=== PATIENT | female | born 1980 | race Hispanic/Latino ===

== ENCOUNTER 2025-04-10 14:47 | Inpatient (IN) | payer BC, MEDICAID ==
[~2025-04-10] VITALS: Ht 141 cm; Wt 74.6 kg
--- NOTE | 2025-04-10 15:16 | EKG ---
[facility] Test Date: 2025-04-10 Test Time: 15:10:53 Pat Name: LEA ALEJANDRO Department: [facility] Room: 412 Gender: F [employer] Officer: [id number] : 1980 Requested By: RICKIE MCNEAL Order Number: [id number] Reading MD: Dercek Mckeon Measurements Intervals Willis Rate: 54 P: 7 SC: 172 QRS: -6 QRSD: 97 T: 19 QT: 410 QTc: 390 Interpretive Statements Sinus rhythm No previous ECG available for comparison RSR' IN V1 OR V2, PROBABLY NORMAL VARIANT Electronically Signed On 04-13-2025 10:31:31 CDT by Dereck Mckeon Please click the below link to view image of tracing.
--- NOTE | 2025-04-10 15:28 | HMCIMG ---
EXAM: CT Head Without IV contrast. CLINICAL HISTORY: seizure code stroke pt TECHNIQUE: Axial computed tomography images of the head/brain without intravenous contrast. COMPARISON: None provided. FINDINGS: BRAIN: No evidence of acute hemorrhage. No mass lesion. Small area of abnormal hypoattenuating right temporal lobe. No midline shift or extra-axial collections. Left temporal lobe chronic changes of encephalomalacia VENTRICLES: No hydrocephalus. Right ventricular shunt catheter tip in place. ORBITS: The orbits are unremarkable. SINUSES AND MASTOIDS: The paranasal sinuses and mastoid air cells are clear. BONES: No fracture. Left craniotomy changes. SOFT TISSUES: Unremarkable. IMPRESSION: 1. No acute intracranial hemorrhage or mass. 2. Small area of hypoattenuation in the right temporal lobe, possibly representing acute ischemia. Recommend MRI brain for further evaluation. 3. Left temporal lobe encephalomalacia, likely chronic. 4. Right ventricular shunt catheter in place. 5. Left craniotomy changes. /[place]
--- NOTE | 2025-04-10 15:45 | ERN ---
General Chief Complaint: Altered Mental Status Stated Complaint: MOUTH DEVIATION Time Seen by MD: 14:58 Source: patient, family History of Present Illness Initial Comments Patient is a 44-year-old female brought in by mother due to patient experiencing moments of unable to speak. Per mother patient has been presenting with these symptoms since 1:00 a.m.. Upon evaluation in triage her symptoms has been given to improve. Patient has a history of hydrocephaly with shunt in place as well as seizure with the multiple medications for seizure control. Allergies: Coded Allergies: No Known Drug Allergies (Unverified Allergy, Unknown, 04/10/25) Past Medical History Past Medical History: Seizure Past Surgical History: None ROS Dictation CONSTITUTIONAL: No chills, no fever, no weakness, no diaphoresis, no malaise. HEAD/FACE: No signs of trauma. EENT: No eye pain, no blurred vision, no tearing, no double vision, no ear pain, no ear discharge, no nose pain, no nasal congestion, no throat pain, no throat swelling, no mouth pain. RESPIRATORY: No cough, no orthopnea, no SOB, no stridor, no wheezing. CARDIOVASCULAR: No chest pain, no edema, no palpitations, no syncope. GASTROINTESTINAL/ABDOMINAL: No abdominal pain, no constipation, no diarrhea, no nausea, no vomiting. GENITOURINARY: No abnormal discharge, no dysuria, no frequent urination, no hematuria. No complaints of pain in the genitals. MUSCULOSKELETAL: No back pain, no gout, no joint pain, no joint swelling, no muscle pain, no muscle stiffness, no neck pain. INTEGUMENTARY: No change in color, no change in hair/nails, no dryness, no lesion, no lumps, no rash. NEUROLOGICAL/PSYCH: No anxiety, not depressed, no emotional problem, no headache, no numbness, no pre-existing deficit, no history of seizures, no tremors, no weakness. HEMATOLOGIC/LYMPHATIC: Not anemic, no history of blood clots, no apparent bleeding, no bruising, glands not swollen. All Systems Negative, Except as Noted. Physical Exam Physical Exam Dictation VITAL SIGNS: Reviewed. GENERAL APPEARANCE: Alert, oriented x3, no acute distress, obese. HEAD AND FACE: Non-traumatic. EYES: PERRL, pink conjunctivas, eyelid no trauma, anterior chamber clear. EARS: Pinnas intact and no signs of trauma or erythema. Ear canals clear and no discharge. TMs no erythema. NOSE: No discharge, no bleeding. OROPHARYNX: Mouth normal, teeth no caries, tongue pink. Pharynx clear, no erythema. Tonsils no exudates, no abscesses noted. Mucous membrane moist. NECK: Supple, non-tender, no thyromegaly, no masses, no JVD, no bruits. BREAST: Deferred. CHEST: No tenderness, no crepitus, no paradoxical movement, no retractions. LUNGS: Clear, well-ventilated, symmetric, no rales, no wheezing, no rhonchi, no stridor, good breath sounds bilaterally. HEART: Regular rate, regular rhythm, no murmur, no gallops. VASCULAR: No peripheral edema. ABDOMEN: Soft, positive bowel sounds, nondistended, no guarding, nontender, no rebound, no masses no hepatomegaly, no splenomegaly, no Marinelli's sign, no hernia s. RECTAL: Deferred. GENITAL: Deferred. NEUROLOGICAL: Normal speech, gross motor function intact, gross sensory function intact. MUSCULOSKELETAL: Neck nontender, full range of motion, back nontender, full range of motion. EXTREMITIES: Nontender, full range of motion. SKIN: Color pink, dry, no turgor, no rash, no lacerations, no abrasions, no contusions. LYMPHATICS: Deferred. Results Laboratory and Microbiology Lab and Micro Result Laboratory Tests Test 04/10/25 15:02 04/10/25 15:21 04/10/25 16:15 Whole Blood Glucose 80 MG/DL (70-110) White Blood Count 6.7 K/uL (4.8-10.8) Red Blood Count 4.20 MIL/uL (4.00-5.50) Hemoglobin 11.3 g/dL (12.0-16.0) L Hematocrit 36.2 % (36-48) Mean Corpuscular Volume 86.2 fL (79-99) Mean Corpuscular Hemoglobin 26.9 pg (27.0-33.0) L Mean Corpuscular Hemoglobin Concent 31.2 g/dL (32.0-36.0) L Red Cell Distribution Width 14.8 % (11.0-15.5) Platelet Count 305 K/uL (130-400) Mean Platelet Volume 10.6 fL (7.5-10.5) H Immature Granulocyte % (Auto) 0.3 % (0-1) Neutrophils (%) (Auto) 56.9 % (40.0-77.0) Lymphocytes (%) (Auto) 34.1 % (21.0-51.0) Monocytes (%) (Auto) 7.1 % (3.0-13.0) Eosinophils (%) (Auto) 1.1 % (0.0-8.0) Basophils (%) (Auto) 0.5 % (0.0-5.0) Neutrophils # (Auto) 3.8 K/uL (1.8-7.7) Lymphocytes # (Auto) 2.3 K/uL (1.0-4.8) Monocytes # (Auto) 0.5 K/uL (0.1-1.0) Eosinophils # (Auto) 0.07 K/uL (0.00-0.70) Basophils # (Auto) 0.03 K/uL (0.00-0.20) Absolute Immature Granulocyte (auto 0.02 K/uL (0-1) Nucleated Red Blood Cells 0.0 % (0.0-0.19) Prothrombin Time 10.4 SEC (9.6-11.6) Prothromb Time International Ratio 0.98 (0.85-1.15) Activated Partial Thromboplast Time 33.1 SEC (26.3-35.5) Sodium Level 135 mmol/L (136-145) L Potassium Level 3.8 mmol/L (3.5-5.1) Chloride Level 103 mmol/L (101-111) Carbon Dioxide Level 26 mmol/L (21-32) Blood Urea Nitrogen 14 mg/dL (7-18) Creatinine 0.8 mg/dL (0.5-1.0) Glomerular Filtration Rate Calc 93 mL/min (>90) Random Glucose 83 mg/dL (70-105) Total Calcium 8.7 mg/dL (8.5-10.1) Total Creatine Kinase 47 U/L (21-232) Troponin I High Sensitivity < 4 ng/L (4-50) L LDL Cholesterol 125 mg/dL (0-99) H Urine Color COLORLESS (YELLOW) Urine Appearance CLEAR (CLEAR) Urine pH 5.5 (5.0-8.0) Urine Specific [place] 1.004 (1.001-1.031) Urine Protein NEGATIVE mg/dL (NEGATIVE) Urine Glucose (UA) NEGATIVE mg/dL (NEGATIVE) Urine Ketones NEGATIVE mg/dL (NEGATIVE) Urine Occult Blood NEGATIVE (NEGATIVE) Urine Nitrate NEGATIVE (NEGATIVE) Urine Bilirubin NEGATIVE mg/dL (NEGATIVE) Urine Urobilinogen 0.2 mg/dL (0.2-1.0) Urine Leukocyte Esterase NEGATIVE Pedro/uL Urine Opiates Screen NEGATIVE (NEGATIVE) Urine Barbiturates Screen NEGATIVE (NEGATIVE) Urine Phencyclidine Screen NEGATIVE (NEGATIVE) Urine Amphetamines Screen NEGATIVE (NEGATIVE) Urine Benzodiazepines Screen NEGATIVE (NEGATIVE) Urine Cocaine Screen NEGATIVE (NEGATIVE) Urine Marijuana (THC) Screen NEGATIVE (NEGATIVE) Labs Reviewed?: Yes EKG/XRAY/US/CT/MRI EKG Comment 04/10/2025 time 3:10 p.m. Ventricular rate 54 Sinus rhythm NE [address] wave elevation or depression CT Scan Comment [address] [address] IMAGING REPORT Signed PATIENT: LEA ALEJANDRO MR#: [id number] : 1980 SEX: F AGE: 44 LOCATION: [facility] ORDER [id number] STATUS: [facility] REPORT#: [id number] SERVICE 1500 REASON: seizure ORDERING PHYSICIAN: RICKIE MCNEAL MD PROCEDURE: HEAD WO - CT HEAD/BRAIN W/O CONTRAST EXAM: CT Head Without IV contrast. CLINICAL HISTORY: seizure code stroke pt TECHNIQUE: Axial computed tomography images of the head/brain without intravenous contrast. COMPARISON: None provided. FINDINGS: BRAIN: No evidence of acute hemorrhage. No mass lesion. Small area of abnormal hypoattenuating right temporal lobe. No midline shift or extra-axial collections. Left temporal lobe chronic changes of encephalomalacia VENTRICLES: No hydrocephalus. Right ventricular shunt catheter tip in place. ORBITS: The orbits are unremarkable. SINUSES AND MASTOIDS: The paranasal sinuses and mastoid air cells are clear. BONES: No fracture. Left craniotomy changes. SOFT TISSUES: Unremarkable. IMPRESSION: 1. No acute intracranial hemorrhage or mass. 2. Small area of hypoattenuation in the right temporal lobe, possibly representing acute ischemia. Recommend MRI brain for further evaluation. 3. Left temporal lobe encephalomalacia, likely chronic. 4. Right ventricular shunt catheter in place. 5. Left craniotomy changes. /[place] DICTATED BY: DAVE BAUMANN MD DATE: 04/10/251626 ELECTRONICALLY SIGNED BY: DAVE BAUMANN MD DATE: 04/10/251626 MDM MDM: Differential diagnosis: Seizure-like activity, CVA, TIA, Rationale: Tests considered and ordered secondary to shared decision making include: labs, ECG and radiology Previous outside records reviewed: Old ER visits. Risk of complication and/or morbidity or mortality of patient management: None Medications-Per medication reconciliation Need for hospitalization: Patient does meet criteria for hospitalization. Need for emergency major/minor surgery: No There are no social concerns with this patient. Prescription drug management Prescriptions will include symptomatic care Patient's prior external medical records from other ER visits were reviewed by me as indicated. Prior testing and results from previous visits were reviewed. Prior tests were taken into account with medical decision making and resource utilization, independent historian/historians were used to obtain complete medical history. I independently interpreted the test that were performed, results were reviewed by me and considered findings on radiology if ordered. Medical management and examination interpretation discussions were had by me with other qualified healthcare professionals as indicated for the patient's care. Spoke to neurologist and per his recommendation patient is to get an MRI of the brain in order to be evaluated for ischemic event. Patient does has a vagal stimulator so unable to perform MRI in ER. Patient will be admitted under the care of hospitalist group for MRI to be performed. If any abnormalities present neurologist we will be consulted. ED Course Orders Procedure Category Date Status Time Cbc With Differential LAB 04/10/25 Complete 15:00 Prothrombin Time With LAB 04/10/25 Complete INR 15:00 Partial LAB 04/10/25 Complete Thromboplastin Time 15:00 Ct Head/Brain W/O CT 04/10/25 Resulted Contrast 15:00 Chest 1vw RAD 04/10/25 Resulted 15:00 12 Lead Ekg Tracing- EKG 04/10/25 Complete Technical 15:00 Creatine Kinase, Total LAB 04/10/25 Complete 15:00 Ldl Direct LAB 04/10/25 Complete 15:00 Troponin I High LAB 04/10/25 Complete Sensitivity 15:00 Urinalysis Profile LAB 04/10/25 Complete 15:00 Bedside Glucose CPOE 04/10/25 Transmitted Fingerstick 15:00 Basic Metabolic Panel LAB 04/10/25 Complete 15:00 Drug Screen Urine LAB 04/10/25 Complete 15:00 Vital Signs Date Time Temp Pulse Resp B/P (MAP) Pulse Ox O2 Delivery O2 Flow Rate FiO2 04/10/25 15:57 98.1 53 16 129/75 100 Room Air* 0 21 04/10/25 14:50 98.6 87 18 145/89 98 Critical Care Note Comments Critical Care Procedure Note Authorized and Performed by: me Total critical care time: Approximately 36 minutes Due to a high probability of clinically significant, life threatening deterioration, the patient required my highest level of preparedness to intervene emergently and I personally spent this critical care time directly and personally managing the patient. This critical care time included obtaining a history; examining the patient; pulse oximetry; ordering and review of studies; arranging urgent treatment with development of a management plan; evaluation of patient's response to treatment; frequent reassessment; and, discussions with other providers. This critical care time was performed to assess and manage the high probability of imminent, life-threatening deterioration that could result in multi-organ failure. It was exclusive of separately billable procedures and treating other patients and teaching time. Please see MDM section and the rest of the note for further information on patient assessment and treatment. DX & DISP Disposition: Inpatient Decision to Admit Time: 18:14 Departure Impression: Primary Impression: CVA (cerebral vascular accident) Additional Impressions: TIA (transient ischemic attack), History of seizures, SENIOR REGULATORY AFFAIRS SPECIALIST (ventriculoperitoneal) shunt status Condition: Stable Referrals: SELF,REFERRAL (PCP) RICKIE MCNEAL MD Apr 10, 2025 15:45
[2025-04-10 15:46] LABS: IMMATURE GRANULOCYTE ABSOLUTE 0.02 K/uL (0-1); NUCLEATED RED BLOOD CELLS 0.0 % (0.0-0.19); PLATELET COUNT (AUTO) 305 K/uL (130-400); RED BLOOD CELL COUNT(AUTO) 4.20 MIL/uL (4.00-5.50); RED CELL DISTRIBUTION WIDTH 14.8 % (11.0-15.5); WHITE BLOOD COUNT (AUTO) 6.7 K/uL (4.8-10.8)
[2025-04-10 15:58] LABS: CREATININE 0.8 mg/dL (0.5-1.0); GLOMERULAR FILTR. RATE CALC 93.0 mL/min (>90); GLUCOSE,RANDOM 83.0 mg/dL (70-105); SODIUM SERUM 135.0 mmol/L (136-145); UREA NITROGEN, BLOOD 14.0 mg/dL (7-18)
[2025-04-10 15:59] LABS: INR 0.98 (0.85-1.15)
[2025-04-10 16:07] LABS: CREATINE KINASE, TOTAL 47.0 U/L (21-232); LDL DIRECT 125.0 mg/dL (0-99)
--- NOTE | 2025-04-10 16:24 | HMCIMG ---
EXAM: CR Chest, 1 View. CLINICAL HISTORY: stroke COMPARISON: None provided. FINDINGS: LUNGS: There is no mass, infiltrate, or acute pulmonary abnormality. PLEURAL SPACES: No evidence of pleural effusion or pneumothorax. MEDIASTINUM: The cardiomediastinal silhouette is within normal limits. BONES: No acute osseous abnormality. IMPRESSION: No acute cardiopulmonary pathology is evident. /[place]
[2025-04-10 16:27] LABS: APPEARANCE,URINE CLEAR (CLEAR); GLUCOSE, URINE (UA) NEGATIVE (NEGATIVE); LEUKOCYTE ESTERASE ,URINE NEGATIVE Leu/uL (NEGATIVE); NITRATE,URINE NEGATIVE (NEGATIVE); OCCULT BLOOD,URINE NEGATIVE (NEGATIVE)
[2025-04-10 16:29] LABS: ADD UA MICROSCOPIC NO
[2025-04-10 16:42] LABS: AMPHET/METH SCREEN,URINE NEGATIVE (NEGATIVE); BARBITURATE SCREEN, URINE NEGATIVE (NEGATIVE); CANNABINOID SCREEN,URINE NEGATIVE (NEGATIVE); COCAINE SCREEN,URINE NEGATIVE (NEGATIVE)
[2025-04-10] MEDS ORDERED: DEXTROSE 50%-WATER 50 ML DISP.SYRIN IV PRN (19:30)
[2025-04-10] MEDS ORDERED: GLUCAGON 1MG KIT 1 MG ML IM PRN (19:30)
[2025-04-10] MEDS ORDERED: PoTASSium chloRIDE 20MEQ ER 20 MEQ ERTAB PO PRN (19:30)
[2025-04-10] MEDS ORDERED: MAGNESIUM 2GM PREMIX 50ML 50 ML IV PRN (19:30)
[2025-04-10] MEDS ORDERED: PoTASSium chl 10% ELIXIR 20MEQ 20 MEQ/15 ML UDCUP PO PRN (19:30)
--- NOTE | 2025-04-10 19:34 | HP ---
[facility] Date of Service: Apr 10, 2025 Time of Service: 19:02 PCP: Armando Awad HISTORY OF PRESENT ILLNESS: This is a 44-year-old female with past medical history of depression,seizure disorder ,hydrocephalus with INSTRUCTIONAL SYSTEMS DESIGNER shunt and vagus nerve stimulator in place who presents to the ED for complaints of numbness and weakness to her left side of mouth and difficulty talking which started today around 12:00 noon to 1 pm and reportedly upon ER arrival patient's symptoms have improved .Details and information are taken from patient herself.Patient reports no loss of consciousness,no fall and no seizure episode today.Patient states she was seen by her neurologist yesterday and lab works were drawn yesterday but did not get the result .Patient also reports that she needs a CT scan of the head but she was unable to do it because she is already here today. Patient repo rts last seizure episode was last Sunday morning she said. Seen and examined patient in the ER awake,alert and coherent,following commands and moving all extremities with equal strength .Patient able to have normal sensation on her mouth,denies difficulty swallowing .Patient's mother was at bedside during my evaluation and states patient is in her normal baseline,as far as speech .Patient denies chest pain,palpitation,headache ,dizziness and shortness of breath. his vital signs temperature 98.4, heart rate 53, blood pressure 128/88 saturation 97% on room air. Labs: WBC 6.7, hemoglobin 11, hematocrit 36, platelet count 305. Sodium 135, potassium 3.8, GFR 93, glucose 80, troponin four, LDL 125. Urinalysis is normal. Urine toxicology is negative. Chest x-ray is normal. CT head without contrast result revealed no acute intracranial hemorrhage or mass. Small area of hypoattenuation in the right temporal lobe possibly representing acute ischemia. Recommend MRI brain for further evaluation. Left temporal lobe encephalomalacia likely chronic. Right ventricular shunt catheter in place. Left craniotomy changes. As per ER doctor Nohelia, he spoke to Dr. Jose liu recommended for MRI of the brain.We will admit patient for further medical management. REVIEW OF SYSTEMS CONSTITUTIONAL: Denies fevers, chills, or night sweats. No unintentional weight loss reported. NEUROLOGICAL: Denies headache, amaurosis fugax, motor weakness, sensory deficit, vertigo/spinning sensation, gait abnormalities, or tremors. ENT: No hearing loss, otalgia, otorrhea, rhinitis, rhinorrhea, hoarseness, or sore throat. CARDIOVASCULAR: Denies any exertional angina, dyspnea on exertion, orthopnea, paroxysmal nocturnal dyspnea, palpitations, life-threatening arrhythmias, claudication. PULMONARY: Denies any shortness of breath, cough, phlegm/sputum, hemoptysis, pleuritic chest pain. SLEEP: Denies morning headaches, daytime somnolence or napping. Denies difficulty falling asleep, staying asleep, waking from sleep. Denies knowledge of snoring. GASTROINTESTINAL: Denies any type of dysphagia to either liquids or solids. Denies nausea, vomiting, pyrosis, early satiety, abdominal pain, diarrhea, constipation, or changes in stool consistency or caliber. Denies coffee-ground emesis, hematemesis, hematochezia, or melanotic stools. GENITOURINARY: Denies frequency, urgency, nocturia, hematuria or incontinence (Storage/Irritative symptoms.) Low urinary stream, straining to void, urinary intermittency or hesitancy, splitting of the voiding stream, terminal dribbling. ENDOCRINOLOGIC: Denies polyuria, polydipsia, polyphagia or heat/cold intolerances. HEMATOLOGIC: Denies thrombophilia/previous clots, or coagulopathy/bleeding disorders. ONCOLOGIC: Denies personal history of malignancy. DERMATOLOGIC: Denies rashes or pruritus. PSYCHIATRIC: Denies any suicidal or homicidal ideation. Denies hallucinations. PAST MEDICAL HISTORY: [ Hydrocephalus, depression and seizure disorder ] PAST SURGICAL HISTORY: [ INSTRUCTIONAL SYSTEMS DESIGNER shunt and vagus nerve stimulator placement ] PAST SOCIAL HISTORY: [ patient lives with parents. Patient denies alcohol tobacco and recreational drug use ] FAMILY HISTORY: [ noncontributory ] Coded Allergies: No Known Drug Allergies (Unverified Allergy, Unknown, 04/10/25) PHYSICAL EXAM GENERAL APPEARANCE: The patient is awake, alert, and oriented, in no acute cardiopulmonary distress. NEUROLOGICAL: Cranial nerves II-XII grossly intact. Motor is 5/5 in bilateral upper and lower extremities proximal to distal. No sensory deficits. HEENT: Face is symmetric. Pupils are equal and reactive. Extraocular movements are intact. NECK: Supple. No JVD. No thyromegaly. No submental, submandibular, pre- /postauricular, occipital or supraclavicular lymphadenopathy. CHEST: Normal chest expansion. No Telemetry. LUNGS: Absence of any rales, rhonchi or any wheezing. CARDIOVASCULAR: Regular. S1 and S2 normal. No appreciable rubs, murmurs or gallops. ABDOMEN: Soft, nontender, and nondistended. There is no rebound, voluntary guarding, or rigidity. : Deferred. No Mak. EXTREMITIES: Non-edematous and not cyanotic. No clubbing. Good capillary refill. SKIN: No skin breakdown. Vital Sign (Last 24 Hours) 04/10/25 18:27 Temp 98.4 Pulse 53 Resp 14 B/P (MAP) 128/88 Pulse Ox 97 O2 Delivery Room Air* O2 Flow Rate 0 FiO2 21 LABS: Laboratory: Test 04/10/25 16:15 04/10/25 15:21 04/10/25 15:02 Range/Units Urine Color COLORLESS YELLOW Urine Appearance CLEAR CLEAR Urine pH 5.5 5.0-8.0 Urine Specific [place] 1.004 1.001-1.031 Urine Protein NEGATIVE NEGATIVE mg/dL Urine Glucose (UA) NEGATIVE NEGATIVE mg/dL Urine Ketones NEGATIVE NEGATIVE mg/dL Urine Occult Blood NEGATIVE NEGATIVE Urine Nitrate NEGATIVE NEGATIVE Urine Bilirubin NEGATIVE NEGATIVE mg/dL Urine Urobilinogen 0.2 0.2-1.0 mg/dL Urine Leukocyte Esterase NEGATIVE NEGATIVE Pedro/uL Urine Opiates Screen NEGATIVE NEGATIVE Urine Barbiturates Screen NEGATIVE NEGATIVE Urine Phencyclidine Screen NEGATIVE NEGATIVE Urine Amphetamines Screen NEGATIVE NEGATIVE Urine Benzodiazepines Screen NEGATIVE NEGATIVE Urine Cocaine Screen NEGATIVE NEGATIVE Urine Marijuana (THC) Screen NEGATIVE NEGATIVE White Blood Count 6.7 4.8-10.8 K/uL Red Blood Count 4.20 4.00-5.50 MIL/uL Hemoglobin 11.3 L 12.0-16.0 g/dL Hematocrit 36.2 36-48 % Mean Corpuscular Volume 86.2 79-99 fL Mean Corpuscular Hemoglobin 26.9 L 27.0-33.0 pg Mean Corpuscular Hemoglobin Concent 31.2 L 32.0-36.0 g/dL Red Cell Distribution Width 14.8 11.0-15.5 % Platelet Count 305 130-400 K/uL Mean Platelet Volume 10.6 H 7.5-10.5 fL Immature Granulocyte % (Auto) 0.3 0-1 % Neutrophils (%) (Auto) 56.9 40.0-77.0 % Lymphocytes (%) (Auto) 34.1 21.0-51.0 % Monocytes (%) (Auto) 7.1 3.0-13.0 % Eosinophils (%) (Auto) 1.1 0.0-8.0 % Basophils (%) (Auto) 0.5 0.0-5.0 % Neutrophils # (Auto) 3.8 1.8-7.7 K/uL Lymphocytes # (Auto) 2.3 1.0-4.8 K/uL Monocytes # (Auto) 0.5 0.1-1.0 K/uL Eosinophils # (Auto) 0.07 0.00-0.70 K/uL Basophils # (Auto) 0.03 0.00-0.20 K/uL Absolute Immature Granulocyte (auto 0.02 0-1 K/uL Nucleated Red Blood Cells 0.0 0.0-0.19 % Prothrombin Time 10.4 9.6-11.6 SEC Prothromb Time International Ratio 0.98 0.85-1.15 Activated Partial Thromboplast Time 33.1 26.3-35.5 SEC Sodium Level 135 L 136-145 mmol/L Potassium Level 3.8 3.5-5.1 mmol/L Chloride Level 103 101-111 mmol/L Carbon Dioxide Level 26 21-32 mmol/L Blood Urea Nitrogen 14 7-18 mg/dL Creatinine 0.8 0.5-1.0 mg/dL Glomerular Filtration Rate Calc 93 >90 mL/min Random Glucose 83 70-105 mg/dL Total Calcium 8.7 8.5-10.1 mg/dL Total Creatine Kinase 47 21-232 U/L Troponin I High Sensitivity < 4 L 4-50 ng/L LDL Cholesterol 125 H 0-99 mg/dL Whole Blood Glucose 80 70-110 MG/DL DIAGNOSTICS / RADIOLOGY: [ ] ASSESSMENT: Numbness of the mouth rule out CVA versus TIA POA Seizure disorder POA Persistent bradycardia POA Hydrocephalus with INSTRUCTIONAL SYSTEMS DESIGNER shunt and vagus nerve stimulator POA Depression POA PLAN: We will admit patient in medical telemetry We will keep nothing by mouth except meds We will start Aspirin 81 mg po daily We will start on Atorvastatin 20 mg po daily we will start famotidine 20 mg IV bid for GI prophylaxis We will replace electrolytes as needed per protocol We will add prn medication for fever,pain,cough , nausea and vomiting We will reconcile home meds once medlist available we will request NIHSS score Q shift and neuro check q.4 hours per nursing fall precaution and seizure precaution. We will request labs in am We will request MRI of the brain without contrast We will obtain CTA head and neck We will seek neurology consultation Further orders to follow depending on above results Case discussed with attending physician and came up with above treatment and plan of care. ADVANCED CARE PLANNING 1. Which of the following were discussed? Hospice Care - No Therapeutic options - Yes Advance Directives - No Other discussions - 2. Discussed with who? Patient 3. Voluntary nature of this service was explained to the patient? Yes 4. Amount of time spent - __23min 5. Reviewed by Physician? (if this service was performed by NPP) Yes Patient seen and examined by me. Agree with note by BATTERY LOADER SEE ADDITIONAL ORDERS PER CHART DISCUSSED WITH NURSING STAFF TONA DIAZ OVERAGE SHORTAGE AND DAMAGE CLERK Apr 10, 2025 19:34
--- NOTE | 2025-04-10 19:50 | NUR ---
PATIENT TRANSPORTED TO [facility] BY [facility]
[2025-04-10] MEDS: FAMOTIDINE 20MG VIAL IV SCH (20:03)
[2025-04-10] MEDS ORDERED: TOPI200T PO (20:07)
[2025-04-10] MEDS ORDERED: LAMO200T PO (20:07)
[2025-04-10] MEDS ORDERED: CENO200T PO (20:07)
[2025-04-10] MEDS ORDERED: LEVE750T4 PO (20:07)
[2025-04-10] MEDS: CENOBAMATE 200 MG PO SCH (21:00)
[2025-04-10 21:55] VITALS: BP 106/68; PULSE 60; RESP 18; TEMP 97.5; O2SAT 100
--- NOTE | 2025-04-10 23:14 | NUR ---
SPOKE TO SHANIQUE ABDI, RN WAS INFORMED CTA HEAD AND NECK ORDERED, IV SITE AND CONSENT NEEDED. RN STATED HE WILL WORK ON IT.
[2025-04-11] VITALS (9 sets, daily range): BP systolic 104–110; BP diastolic 61–69; PULSE 59–73; RESP 18–20; TEMP 97.5–98.2; O2SAT 96
[2025-04-11 04:31] LABS: IMMATURE GRANULOCYTE ABSOLUTE 0.03 K/uL (0-1); NUCLEATED RED BLOOD CELLS 0.0 % (0.0-0.19); PLATELET COUNT (AUTO) 293 K/uL (130-400); RED BLOOD CELL COUNT(AUTO) 4.14 MIL/uL (4.00-5.50); RED CELL DISTRIBUTION WIDTH 14.6 % (11.0-15.5); WHITE BLOOD COUNT (AUTO) 7.1 K/uL (4.8-10.8)
[2025-04-11 04:51] LABS: ASPARTATE AMINOTRANSFERASE 19.0 U/L (10-37); CREATININE 0.8 mg/dL (0.5-1.0); GLOMERULAR FILTR. RATE CALC 93.0 mL/min (>90); GLUCOSE,RANDOM 82.0 mg/dL (70-105); LDL DIRECT 132.0 mg/dL (0-99); SODIUM SERUM 141.0 mmol/L (136-145); TOTAL PROTEIN, SERUM 6.9 g/dL (6.0-8.3); UREA NITROGEN, BLOOD 12.0 mg/dL (7-18)
[2025-04-11] MEDS ORDERED: IOHEXOL 350 MG/ML 100ML INFUS..BTL IV ONE (05:26)
--- NOTE | 2025-04-11 06:58 | HMCIMG ---
EXAM: CTA Head with Intravenous Contrast. CLINICAL HISTORY: TIA/infarct. TECHNIQUE: Axial CTA images of the head were performed. Coronal and sagittal reformatted images were generated and reviewed. CT scan is done according to ALARA (As Low as Reasonably Achievable). CONTRAST: Yes. COMPARISON: None provided. FINDINGS: Anterior cerebral arteries are unremarkable. 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 The anterior communicating artery is opacified. Middle Cerebral arteries are unremarkable. Posterior communicating arteries are opacified. Posterior cerebral arteries are intact. Vertebral arteries are visualized. The basilar artery is unremarkable. Intracranial internal carotid arteries demonstrate normal enhancement. No evidence of aneurysm (greater than 4 mm) or arteriovenous lesion. Post left temporal craniotomy status. Encephalomalacic changes in the anteroinferior aspect of the left temporal lobe. Extra ventricular drainage is identified with tip in the body of the right lateral ventricle. Mild volume loss of the left cerebral hemisphere particularly the temporal lobe and left occipital lobe with ex vacuo dilatation of the occipital horn of the left lateral ventricle. IMPRESSION: No hemodynamically significant abnormality in the intracranial arteries. 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 EXAM: CTA Neck with Intravenous Contrast. CLINICAL HISTORY: TIA/infarct. TECHNIQUE: Axial CTA images of the neck were performed. Coronal and sagittal reformatted images were generated and reviewed. CT scan is done according to ALARA (As Low as Reasonably Achievable). CONTRAST: Yes. COMPARISON: None provided. FINDINGS: CCA, Carotid Bulb, ICA, and origin of the ECA are well opacified. Vertebral arteries are well opacified. Jugular veins are well opacified The included great vessels of the aortic arch are grossly unremarkable. Included lung apices are grossly unremarkable. No acute bony changes. IMPRESSION: No hemodynamically significant abnormality in the neck arteries. /Sonia
--- NOTE | 2025-04-11 08:10 | NUR ---
BESIDE SWALLOW EVALUATION COMPLETED: PATIENT DID NOT EXHIBIT S/S OF PENETRATION OR ASPIRATION. RECOMMEND: REGULAR TEXTURED SOLIDS WITH THIN LIQUIDS. ERP DEVELOPER reviewed results recommendations with patient, patient's mother, and nurse Yolie. Education provided to patient/family on risks of aspiration. ERP DEVELOPER answered all questions. Addendum: 04/11/25 at [address] [facility] Amended: Links added.
[2025-04-11] MEDS: ASPIRIN 81 MG EC TAB PO SCH (10:01)
--- NOTE | 2025-04-11 11:42 | NUR ---
DCP: INITIAL ASSESSMENT Patient lives with mother, Angela Badillo. She has no home services or DME. Patient is able to complete ADLs but does not drive. PCP is Dr. Delmi Roberts. Pharmacy is [facility] in [place]. Patient voiced no safety concerns regarding returning home and states she has no difficulty with housing or buying food. DCP is home. Addendum: 04/11/25 at 1144 by DELMI STEEN SS Amended: Links added.
--- NOTE | 2025-04-11 12:06 | CONS ---
CONSULTATION NOTE Date of Service: Apr 11, 2025 Reason for Consultation: Eval of diff speaking Requesting Physician: Hospitalist HISTORY OF PRESENT ILLNESS: Ms. Badillo is a 44-year-old right-handed woman with a history of epilepsy since age 15 and depression presenting after experiencing difficulty speaking yesterday. The patient reports that yesterday she was unable to talk and had trouble saying what she wanted to say. This episode began at 2 PM and lasted until 8 PM, approximately 6 hours in duration. She denies having any headaches or seizures during this time, though she is unsure if she had a seizure. She reports no other associated symptoms during this episode. Regarding her epilepsy management, the patient is currently on multiple antiepileptic medications prescribed by Dr. Didi Lazo, including topiramate 200 mg (2 capsules at bedtime), levetiracetam 750 mg (2 tablets twice daily), lamotrigine 200 mg (2 tablets), and Xcopri 200 mg (one tablet nightly). Despite this regimen, her seizures remain poorly controlled, having experienced 4 seizures in the past month. She has an upcoming appointment with Dr. Lazo on Sunday. The patient has a history of meningitis at [age] year of age, which preceded her epilepsy diagnosis at age 15. She has not yet had an MRI and inquired about the compatibility of MRI with her VNS device. Medical History - Epilepsy diagnosed at age 15 - Depression - Meningitis at [age] year of age Surgical History - Vagal nerve stimulator (VNS) implantation Medications and Supplements - Topiramate 200 mg, 2 capsules at bedtime - Levetiracetam 750 mg, 2 tablets twice a day - Lamotrigine 200 mg, 2 tablets - Xcopri 200 mg, one tablet every night REVIEW OF SYSTEMS CONSTITUTIONAL: Denies fever, chills, or fatigue. HEAD/FACE: No signs of trauma. EENT: Denies eye pain, blurred vision, double vision, or light sensitivity. RESPIRATORY: Denies shortness of breath, cough, wheezing CARDIOVASCULAR: Denies chest pain, palpitation, syncope GASTROINTESTINAL/ABDOMINAL: Denies abdominal pain, constipation, diarrhea, nausea or vomiting GENITOURINARY: Denies dysuria or hematuria. MUSCULOSKELETAL: Denies joint pain, tenderness, or trauma. INTEGUMENTARY: Denies rash or itchiness NEUROLOGICAL/PSYCH: Positive for diff speaking. Denies anxiety, depression, heat or cold intolerance. PAST MEDICAL HISTORY: as above PAST SURGICAL HISTORY: as above PAST SOCIAL HISTORY: No tobacco abuse FAMILY HISTORY: None Coded Allergies: No Known Drug Allergies (Unverified Allergy, Unknown, 04/10/25) PHYSICAL EXAM EYES: Anicteric. Pupils equal and reactive. HENT: No oral thrush seen, moist Oral mucosa NECK: Supple, no JVD or thyromegaly. LUNGS: Good air entry. No rales, no rhonchi. CARDIOVASCULAR: S1, S2 regular. No murmur heard. ABDOMEN: Soft, non tender, bowel sounds present, no organomegaly CENTRAL NERVOUS SYSTEM: Awake, alert, oriented x 3. No focal deficits. SKIN: No rashes, no swelling. LYMPHATICS: No peripheral lymphadenopathy MUSCULOSKELETAL: No joint swelling, erythema or tenderness. EXTREMITIES: No cyanosis or clubbing BACK: No deformity, no pressure ulcer. GENITOURINARY: No dysuria or hematuria Vital Sign (Last 24 Hours) 04/11/25 04/11/25 10:03 11:38 Temp 97.9 Pulse 72 Resp 18 B/P (MAP) 104/61 Pulse Ox 96 O2 Delivery Room Air O2 Flow Rate 0 FiO2 21 Intake & Output (last 24hrs) 0 04/10/25 04/10/25 04/11/25 15:00 23:00 07:00 Intake Total 0 ml Balance 0 ml LABS: Laboratory: Test 04/11/25 10:57 04/11/25 04:11 04/10/25 16:15 04/10/25 15:21 Range/Units Whole Blood Glucose 132 #H 70-110 MG/DL White Blood Count 7.1 4.8-10.8 K/uL Red Blood Count 4.14 4.00-5.50 MIL/uL Hemoglobin 11.5 L 12.0-16.0 g/dL Hematocrit 34.5 L 36-48 % Mean Corpuscular Volume 83.3 79-99 fL Mean Corpuscular Hemoglobin 27.8 27.0-33.0 pg Mean Corpuscular Hemoglobin Concent 33.3 32.0-36.0 g/dL Red Cell Distribution Width 14.6 11.0-15.5 % Platelet Count 293 130-400 K/uL Mean Platelet Volume 10.4 7.5-10.5 fL Immature Granulocyte % (Auto) 0.4 0-1 % Neutrophils (%) (Auto) 61.1 40.0-77.0 % Lymphocytes (%) (Auto) 29.6 21.0-51.0 % Monocytes (%) (Auto) 6.9 3.0-13.0 % Eosinophils (%) (Auto) 1.7 0.0-8.0 % Basophils (%) (Auto) 0.3 0.0-5.0 % Neutrophils # (Auto) 4.4 1.8-7.7 K/uL Lymphocytes # (Auto) 2.1 1.0-4.8 K/uL Monocytes # (Auto) 0.5 0.1-1.0 K/uL Eosinophils # (Auto) 0.12 0.00-0.70 K/uL Basophils # (Auto) 0.02 0.00-0.20 K/uL Absolute Immature Granulocyte (auto 0.03 0-1 K/uL Nucleated Red Blood Cells 0.0 0.0-0.19 % Sodium Level 141 136-145 mmol/L Potassium Level 3.5 3.5-5.1 mmol/L Chloride Level 107 101-111 mmol/L Carbon Dioxide Level 27 21-32 mmol/L Blood Urea Nitrogen 12 7-18 mg/dL Creatinine 0.8 0.5-1.0 mg/dL Glomerular Filtration Rate Calc 93 >90 mL/min Random Glucose 82 70-105 mg/dL Total Calcium 8.3 L 8.5-10.1 mg/dL Total Bilirubin 0.3 0.2-1.0 mg/dL Aspartate Amino Transf (AST/SGOT) 19 10-37 U/L Alanine Aminotransferase (ALT/SGPT) 28 12-78 U/L Alkaline Phosphatase 149 H 50-136 U/L Troponin I High Sensitivity < 4 L 4-50 ng/L Total Protein 6.9 6.0-8.3 g/dL Albumin 3.1 L 3.5-5.0 g/dL Triglycerides Level 90 30-200 mg/dL Cholesterol Level 220 H <200 mg/dL LDL Cholesterol 132 H 0-99 mg/dL HDL Cholesterol 67 35-85 mg/dL Thyroid Stimulating Hormone (TSH) 1.78 0.36-3.74 uIU/mL Urine Color COLORLESS YELLOW Urine Appearance CLEAR CLEAR Urine pH 5.5 5.0-8.0 Urine Specific [place] 1.004 1.001-1.031 Urine Protein NEGATIVE NEGATIVE mg/dL Urine Glucose (UA) NEGATIVE NEGATIVE mg/dL Urine Ketones NEGATIVE NEGATIVE mg/dL Urine Occult Blood NEGATIVE NEGATIVE Urine Nitrate NEGATIVE NEGATIVE Urine Bilirubin NEGATIVE NEGATIVE mg/dL Urine Urobilinogen 0.2 0.2-1.0 mg/dL Urine Leukocyte Esterase NEGATIVE NEGATIVE Pedro/uL Urine Opiates Screen NEGATIVE NEGATIVE Urine Barbiturates Screen NEGATIVE NEGATIVE Urine Phencyclidine Screen NEGATIVE NEGATIVE Urine Amphetamines Screen NEGATIVE NEGATIVE Urine Benzodiazepines Screen NEGATIVE NEGATIVE Urine Cocaine Screen NEGATIVE NEGATIVE Urine Marijuana (THC) Screen NEGATIVE NEGATIVE Prothrombin Time 10.4 9.6-11.6 SEC Prothromb Time International Ratio 0.98 0.85-1.15 Activated Partial Thromboplast Time 33.1 26.3-35.5 SEC Hemoglobin A1c 5.5 4.0-6.0 % Estimated Average Glucose (eAG) 111 70-126 mg/dL Total Creatine Kinase 47 21-232 U/L DIAGNOSTICS / RADIOLOGY: CTH negative. MRI pending ASSESSMENT / PLAN: Ms. Badillo is a 44-year-old right-handed female with a history of epilepsy since age 15 and depression presenting with concerns of inability to speak for 6 hours yesterday and increased seizure frequency. Possible Transient Ischemic Attack (TIA) vs. Focal Seizure Assessment: Patient experienced sudden onset of speech difficulty lasting from 2 PM to 8 PM yesterday, without associated headache or other neurological symptoms. Given the patient's young age for stroke and history of epilepsy, differential diagnosis includes TIA vs. focal seizure. MRI is pending to rule out ischemic stroke. Plan: - Initiate antiplatelet therapy for 3 weeks: - Aspirin 81 mg PO daily - Clopidogrel 75 mg PO daily - Schedule MRI to evaluate for strokes. (off vagal nerve stimulator). 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 Current seizure control is suboptimal, with 4 seizures reported in the past month despite being on multiple anti-epileptic medications. Plan: - Continue current anti-epileptic medications: - Topiramate - Levetiracetam - Lamotrigine - Xcopri - Follow up with Dr. Lazo on Sunday for seizure management Episodic Migraine Headaches Assessment: Patient has a history of episodic migraine headaches. No current symptoms or concerns Depression Assessment: Patient has a history of depression. No current symptoms or concerns Thank you for your consultation. KEISHA SEGOVIA MD Apr 11, 2025 12:06
[2025-04-11] MEDS ORDERED: TOPI200C5 PO (12:24)
[2025-04-11] MEDS ORDERED: LAMO200T10 PO (12:28)
--- NOTE | 2025-04-11 12:45 | PN ---
[facility] PROGRESS NOTE Date of Service: Apr 11, 2025 Time of Service: 12:42 SUBJECTIVE: 04/11 patient remains admitted to medical floor, case discussed with the RN, no acute events overnight, hemodynamically stable, afebrile, saturating normal on room air, CT head showing a small area of hypoattenuation in the right temporal lobe, possibly representing acute ischemia, recommended MRI of the brain, left temporal lobe encephalomalacia, likely chronic, right ventricular shunt catheter in place, left craniotomy changes. Neurology input noted and appreciated, patient is started on aspirin 81 mg p.o. daily and Plavix 75 mg p.o. daily. Recommended MRI to evaluate for stroke (of vagal nerve stimulator). Continue Topamax and Keppra. During my visit comfortably in bed, alert oriented x3, mother at bedside, updated. REVIEW OF SYSTEMS CONSTITUTIONAL: Denies fevers, chills, or night sweats. No unintentional weight loss reported. NEUROLOGICAL: Denies headache, amaurosis fugax, motor weakness, sensory deficit, vertigo/spinning sensation, gait abnormalities, or tremors. ENT: No hearing loss, otalgia, otorrhea, rhinitis, rhinorrhea, hoarseness, or sore throat. CARDIOVASCULAR: Denies any exertional angina, dyspnea on exertion, orthopnea, paroxysmal nocturnal dyspnea, palpitations, life-threatening arrhythmias, claudication. PULMONARY: Denies any shortness of breath, cough, phlegm/sputum, hemoptysis, pleuritic chest pain. SLEEP: Denies morning headaches, daytime somnolence or napping. Denies difficulty falling asleep, staying asleep, waking from sleep. Denies knowledge of snoring. GASTROINTESTINAL: Denies any type of dysphagia to either liquids or solids. Denies nausea, vomiting, pyrosis, early satiety, abdominal pain, diarrhea, constipation, or changes in stool consistency or caliber. Denies coffee-ground emesis, hematemesis, hematochezia, or melanotic stools. GENITOURINARY: Denies frequency, urgency, nocturia, hematuria or incontinence (Storage/Irritative symptoms.) Low urinary stream, straining to void, urinary intermittency or hesitancy, splitting of the voiding stream, terminal dribbling. ENDOCRINOLOGIC: Denies polyuria, polydipsia, polyphagia or heat/cold intolerances. HEMATOLOGIC: Denies thrombophilia/previous clots, or coagulopathy/bleeding d isorders. ONCOLOGIC: Denies personal history of malignancy. DERMATOLOGIC: Denies rashes or pruritus. PSYCHIATRIC: Denies any suicidal or homicidal ideation. Denies hallucinations. PHYSICAL EXAM GENERAL APPEARANCE: The patient is awake, alert, and oriented, in no acute cardiopulmonary distress. NEUROLOGICAL: Cranial nerves II-XII grossly intact. Motor is 5/5 in bilateral upper and lower extremities proximal to distal. No sensory deficits. HEENT: Face is symmetric. Pupils are equal and reactive. Extraocular movements are intact. NECK: Supple. No JVD. No thyromegaly. No submental, submandibular, pre- /postauricular, occipital or supraclavicular lymphadenopathy. CHEST: Normal chest expansion. No Telemetry. LUNGS: Absence of any rales, rhonchi or any wheezing. CARDIOVASCULAR: Regular. S1 and S2 normal. No appreciable rubs, murmurs or gallops. ABDOMEN: Soft, nontender, and nondistended. There is no rebound, voluntary guarding, or rigidity. : Deferred. No Mak. EXTREMITIES: Non-edematous and not cyanotic. No clubbing. Good capillary refill. SKIN: No skin breakdown. Vital Signs (last 8hr) Date Time Temp Pulse Resp B/P (MAP) Pulse Ox O2 Delivery O2 Flow Rate FiO2 04/11/25 11:38 97.9 72 18 104/61 Room Air 04/11/25 10:03 96 Room Air* 0 21 04/11/25 08:47 98.2 63 18 106/69 Room Air 04/11/25 08:34 98.2 63 18 106/69 63 Room Air LABS: Laboratory: Test 04/11/25 10:57 04/11/25 04:11 04/10/25 16:15 04/10/25 15:21 Range/Units Whole Blood Glucose 132 #H 70-110 MG/DL White Blood Count 7.1 4.8-10.8 K/uL Red Blood Count 4.14 4.00-5.50 MIL/uL Hemoglobin 11.5 L 12.0-16.0 g/dL Hematocrit 34.5 L 36-48 % Mean Corpuscular Volume 83.3 79-99 fL Mean Corpuscular Hemoglobin 27.8 27.0-33.0 pg Mean Corpuscular Hemoglobin Concent 33.3 32.0-36.0 g/dL Red Cell Distribution Width 14.6 11.0-15.5 % Platelet Count 293 130-400 K/uL Mean Platelet Volume 10.4 7.5-10.5 fL Immature Granulocyte % (Auto) 0.4 0-1 % Neutrophils (%) (Auto) 61.1 40.0-77.0 % Lymphocytes (%) (Auto) 29.6 21.0-51.0 % Monocytes (%) (Auto) 6.9 3.0-13.0 % Eosinophils (%) (Auto) 1.7 0.0-8.0 % Basophils (%) (Auto) 0.3 0.0-5.0 % Neutrophils # (Auto) 4.4 1.8-7.7 K/uL Lymphocytes # (Auto) 2.1 1.0-4.8 K/uL Monocytes # (Auto) 0.5 0.1-1.0 K/uL Eosinophils # (Auto) 0.12 0.00-0.70 K/uL Basophils # (Auto) 0.02 0.00-0.20 K/uL Absolute Immature Granulocyte (auto 0.03 0-1 K/uL Nucleated Red Blood Cells 0.0 0.0-0.19 % Sodium Level 141 136-145 mmol/L Potassium Level 3.5 3.5-5.1 mmol/L Chloride Level 107 101-111 mmol/L Carbon Dioxide Level 27 21-32 mmol/L Blood Urea Nitrogen 12 7-18 mg/dL Creatinine 0.8 0.5-1.0 mg/dL Glomerular Filtration Rate Calc 93 >90 mL/min Random Glucose 82 70-105 mg/dL Total Calcium 8.3 L 8.5-10.1 mg/dL Total Bilirubin 0.3 0.2-1.0 mg/dL Aspartate Amino Transf (AST/SGOT) 19 10-37 U/L Alanine Aminotransferase (ALT/SGPT) 28 12-78 U/L Alkaline Phosphatase 149 H 50-136 U/L Troponin I High Sensitivity < 4 L 4-50 ng/L Total Protein 6.9 6.0-8.3 g/dL Albumin 3.1 L 3.5-5.0 g/dL Triglycerides Level 90 30-200 mg/dL Cholesterol Level 220 H <200 mg/dL LDL Cholesterol 132 H 0-99 mg/dL HDL Cholesterol 67 35-85 mg/dL Thyroid Stimulating Hormone (TSH) 1.78 0.36-3.74 uIU/mL Urine Color COLORLESS YELLOW Urine Appearance CLEAR CLEAR Urine pH 5.5 5.0-8.0 Urine Specific [place] 1.004 1.001-1.031 Urine Protein NEGATIVE NEGATIVE mg/dL Urine Glucose (UA) NEGATIVE NEGATIVE mg/dL Urine Ketones NEGATIVE NEGATIVE mg/dL Urine Occult Blood NEGATIVE NEGATIVE Urine Nitrate NEGATIVE NEGATIVE Urine Bilirubin NEGATIVE NEGATIVE mg/dL Urine Urobilinogen 0.2 0.2-1.0 mg/dL Urine Leukocyte Esterase NEGATIVE NEGATIVE Pedro/uL Urine Opiates Screen NEGATIVE NEGATIVE Urine Barbiturates Screen NEGATIVE NEGATIVE Urine Phencyclidine Screen NEGATIVE NEGATIVE Urine Amphetamines Screen NEGATIVE NEGATIVE Urine Benzodiazepines Screen NEGATIVE NEGATIVE Urine Cocaine Screen NEGATIVE NEGATIVE Urine Marijuana (THC) Screen NEGATIVE NEGATIVE Prothrombin Time 10.4 9.6-11.6 SEC Prothromb Time International Ratio 0.98 0.85-1.15 Activated Partial Thromboplast Time 33.1 26.3-35.5 SEC Hemoglobin A1c 5.5 4.0-6.0 % Estimated Average Glucose (eAG) 111 70-126 mg/dL Total Creatine Kinase 47 21-232 U/L Current Medications Medications (Trade) Dose Ordered Sig/Swapnil Route PRN Reason Start Time Stop Time Status Last Admin Dose Admin Acetaminophen (TYLenol 325MG TAB) 650 mg Q4H PRN PO MILD PAIN (1-3) 04/10/25 19:30 05/10/25 19:29 Acetaminophen (TYLenol 325MG TAB) 650 mg Q6H PRN PO TEMPERATURE GREATER THAN 101.5 04/10/25 19:30 05/10/25 19:29 Aspirin (Aspirin 81mg Ec Tab) 81 mg DAILY PO 04/11/25 09:00 05/11/25 08:59 04/11/25 10:01 81 MG Atorvastatin Calcium (LIPItor 20MG) 20 mg HS PO 04/10/25 21:00 05/10/25 20:59 04/10/25 20:03 20 MG Dextrose (D50w) 50 ml AD PRN IV HYPOGLYCEMIA PROTOCOL 04/10/25 19:30 05/10/25 19:29 Famotidine (Pepcid 20mg Vial) 20 mg BID IV 04/10/25 21:00 05/10/25 20:59 04/11/25 10:01 20 MG Glucagon (Glucagon 1mg Kit) 1 mg AD PRN IM HYPOGLYCEMIA PROTOCOL 04/10/25 19:30 05/10/25 19:29 Home Med (Home Medication) Cenobamate (Xcopri) 200 MG HS PO 04/10/25 21:00 05/10/25 20:59 Lamotrigine (LAMIctal 100 MG TABLET) 200 mg HS PO 04/10/25 21:00 05/10/25 20:59 04/10/25 20:51 200 MG Levetiracetam (kepPRA 500 MG TABLET) 1,500 mg BID PO 04/10/25 21:00 05/10/25 20:59 04/11/25 10:01 1,500 MG Magnesium Sulfate 50 ml @ 0 mls/hr PROTOCOL PRN IV OTHER [SEE ORDER COMMENTS] 04/10/25 19:30 05/10/25 19:29 Ondansetron HCl (zoFRAN 4MG INJ) 4 mg Q6H PRN IV NAUSEA/VOMITING 04/10/25 19:30 05/10/25 19:29 Potassium Chloride 100 ml @ 100 mls/hr AD PRN IV POTASSIUM PROTOCOL 04/10/25 19:30 05/10/25 19:29 Potassium Chloride (K-Dur/Klor-Con 20meq) 20 meq AD PRN PO POTASSIUM PROTOCOL 04/10/25 19:30 05/10/25 19:29 Potassium Chloride (KCl 10% Elixir 20meq/15ml) 20 meq AD PRN PO POTASSIUM PROTOCOL 04/10/25 19:30 05/10/25 19:29 Topiramate (TopaMAX) 200 mg HS PO 04/10/25 21:00 05/10/25 20:59 04/10/25 20:48 200 MG DIAGNOSTICS / RADIOLOGY: [ ] ASSESSMENT: Numbness of the mouth rule out CVA versus TIA POA Seizure disorder POA Persistent bradycardia POA Hydrocephalus with [employer] shunt and vagus nerve stimulator POA Depression POA PLAN: 04/11 patient remains admitted to medical floor, case discussed with the RN, no acute events overnight, hemodynamically stable, afebrile, saturating normal on room air, CT head showing a small area of hypoattenuation in the right temporal lobe, possibly representing acute ischemia, recommended MRI of the brain, left temporal lobe encephalomalacia, likely chronic, right ventricular shunt catheter in place, left craniotomy changes. Neurology input noted and appreciated, patient is started on aspirin 81 mg p.o. daily and Plavix 71 mg p.o. daily. Recommended MRI to evaluate for stroke (of vagal nerve stimulator). Continue Topamax and Keppra. NEURO: Minimize central acting medications as possible. Fall Precautions. Well lighted room through the day and minimize interruptions through the night to prevent acute delirium. PULMONARY: Supplemental 02 as needed BiPAP as necessary, for respiratory distress Titrate Fio2 to keep Spo2 > or = 90% DuoNebs and CPT as needed IS hourly while awake for pulmonary hygiene prn Out of bed to chair as tolerated Maintain aspiration precautions at all times CARDIOVASCULAR: Follow hemodynamics. Vital signs per facility protocol GI & NUTRITION: Continue nutritional support Aspirations precautions Prokinetic agents and laxatives as needed KIDNEYS & ELECTROLYTES: Strict monitoring of intake and output Daily weights Avoid nephrotoxic agents Monitor electrolytes and replace as needed Goal urine output of 30mL/hr or 0.5mL/kg/hr Medications to be dosed according to renal function. Avoid contrast if possible ENDOCRINE: Maintain blood glucose between 100-180 at all times. Insulin sliding scale for blood glucose management Hypoglycemia and hyperglycemia protocol in place INFECTIOUS DISEASE: Trend temperature, WBC and procalcitonin level Follow cultures, deescalate antibiotics as soon as possible. Panculture if new onset fever HEMATOLOGY & COAGULATION: Monitor H&H. Keep Hgb > 7 Transfuse 1 unit of PRBC for Hgb < 7 Transfuse 1 pack of platelets of platelets < 20, 000 Watch for any signs and symptoms of bleeding SKIN: Pressure ulcer prevention per facility protocol Specialty mattress as needed ORTHO/REHAB Continue PT/OT PRN: MEDICATIONS Tylenol 650 mg po every 4 hrs for fever zofran 4 mg IV every 6 hrs for n/v Hydralazine 5 mg IV every 4 hrs systolic pressure > 160 bowel regiment: lactulose 20 gm PO BID PRN constipation Supportive measures: Continue GI and DVT prophylaxis All questions answered time spent: > 35 min KATIE ALANIS MD Apr 11, 2025 12:45
--- NOTE | 2025-04-11 15:21 | NUR ---
SPOKE TO PT AND MOTHER AT BEDSIDE REQUESTED INFORMATION REGARDING THE VNS TO CALL AND GET THE INFORMATION ON THE BRAND AND MODEL TO CALL AND ASK IF THE PT CAN HAVE AN MRI. AND IF SO DOES A CHIP APPLYING MACHINE TENDER NEED TO COME IN TO SET THE SETTINGS ON THE MRI MACHINE. PT AND MOTHER VERBALIZED THEY DO NOT KNOW THE BRAND OR COMPANY. THEY WERE MADE AWARE THE INFORMATION OF THE STIMULATOR IS GIVEN A CARD. THE PT AND MOTHER VERBALIZED THEY WOULD HAVE TO LOOK FOR THE CARD AT THE HOUSE. DR ALANIS WAS MADE AWARE. HE VERBALIZED HE WOULD CONTACT DR. SILVA.
--- NOTE | 2025-04-11 16:35 | NUR ---
CALLED PHARMACY TO CALL IN MEDICATIONS PER DR. ALANIS ORDERS.
--- NOTE | 2025-04-11 17:12 | NUR ---
PT WAS EDUCATED ON THE IMPORTANCE OF FOLLOWING THE MEDICATION TREATMENTAND FOLLOWING UP WITH HER NEUROLOGIST. PT VERBALIZED SHE HAS AN APPT WITH HER NEUROLOGIST ON SUNDAY. PT AND MOTHER VERBALIZED UNDERSTANDING AND NO FURTHER NEEDS WERE VERBALIZED. IV WERE REMOVED WITHOUT COMPLICATIONS. PT AND MOTHER ARE CURRENTLY WAITING FOR THEIR RIDE.
[2025-04-11] MEDS ORDERED: TOPIRAMATE 200 MG PO SCH (21:00)
--- NOTE | 2025-04-12 08:00 | DS ---
Discharge Summary Hospital Course Summary: Date of service 04/12/2025 Patient admitted to hospital April 10, 2025 with the following history of the present illness: This is a 44-year-old female with past medical history of depression,seizure disorder ,hydrocephalus with SUPPLY PERSON shunt and vagus nerve stimulator in place who presents to the ED for complaints of numbness and weakness to her left side of mouth and difficulty talking which started today around 12:00 noon to 1 pm and reportedly upon ER arrival patient's symptoms have improved .Details and information are taken from patient herself.Patient reports no loss of consciousness,no fall and no seizure episode today.Patient states she was seen by her neurologist yesterday and lab works were drawn yesterday but did not get the result .Patient also reports that she needs a CT scan of the head but she was unable to do it because she is already here today. Patient reports last seizure episode was last Sunday morning she said. Seen and examined patient in the ER awake,alert and coherent,following commands and moving all extremities with equal strength .Patient able to have normal sensation on her mouth,denies difficulty swallowing .Patient's mother was at [facility] during my evaluation and states patient is in her normal baseline,as far as speech .Patient denies chest pain,palpitation,headache ,dizziness and shortness of breath. his vital signs temperature 98.4, heart rate 53, blood pressure 128/88 saturation 97% on room air. Labs: WBC 6.7, hemoglobin 11, hematocrit 36, platelet count 305. Sodium 135, potassium 3.8, GFR 93, glucose 80, troponin four, LDL 125. Urinalysis is normal. Urine toxicology is negative. Chest x-ray is normal. CT head without contrast result revealed no acute intracranial hemorrhage or mass. Small area of hypoattenuation in the right temporal lobe possibly representing acute ischemia. Recommend MRI brain for further evaluation. Left temporal lobe encephalomalacia likely chronic. Right ventricular shunt catheter in place. Left craniotomy changes. As per ER doctor Nohelia, he spoke to Dr. Jose liu recommended for MRI of the brain.We will admit patient for further medical management. Hospital course During the course of the hospitalization the patient was admitted to the medical floor, neurological consultation requested, input noted and appreciated, possible transient ischemic attack versus focal seizure, initiate antiplatelet therapy for three weeks to include aspirin 81 mg p.o. daily, Plavix 75 mg p.o. daily. Scheduled MRI to evaluate for strokes (of the vagal nerve stimulator), recommended Mediterranean diet, awake loss and exercise. To continue antiepileptic medications to include Topamax, Keppra and lamotrigine. Patient can follow up with Dr. Lazo on Sunday for seizure management. As of 04/11/2025 the patient alert oriented x3, following commands, the mother is at the bedside. Plan to do brain MRI discussed in detail. They do not have the information regarding the vagal nerve stimulator. 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 The patient's primary neurologist office is closed, we are not able to obtain that information as well. The patient and the mother stated they would like to be discharged home. I discussed the case with the neurologist, okay for the patient to be discharged home and follow up with the neurologist as an outpatient. Prescription called in for aspirin and Plavix for 21 days. Patient to resume seizure medication from home. To follow up with her neurologist as an outpatient. Advised to return to hospital if condition changes. Both the patient and the mother agreed and understood the information provided. [employer](s): Neurologist Assessment/Plan: Final diagnosis Numbness of the mouth rule out CVA versus TIA POA Seizure disorder POA Persistent bradycardia POA Hydrocephalus with SUPPLY PERSON shunt and vagus nerve stimulator POA Depression POA Discharge Instructions: Follow up with primary care physician as an outpatient as well as with her primary neurologist Dr. Lazo next week. Home Medications: Reported Medications Lamotrigine (Lamotrigine) 200 Mg Tablet, 2 TAB PO HS for 30 Days, #30 TAB 0 Refills 04/11/25 Topiramate (Topiramate ER) 200 Mg Cap.spr.24, 2 CAP PO HS for 30 Days, #60 CAP 0 Refills 04/11/25 Cenobamate (Xcopri) 200 Mg Tablet, 200 MG PO HS, TAB 04/10/25 Lamotrigine (Lamictal) 200 Mg Tablet, 200 MG PO HS, TAB 04/10/25 Discontinued Reported Medications Topiramate (Topamax) 200 Mg Tablet, 1 TAB PO HS for 30 Days, #30 TAB 0 Refills 04/10/25 Levetiracetam (Keppra) 750 Mg Tablet, 2 TAB PO BID for 30 Days, #60 TAB 0 Refills 04/10/25 Time spent arranging discharge: 31-60 minutes KATIE ALANIS MD Apr 12, 2025 08:00
== END 2025-04-11 17:35 | disposition home or self-care (01) | DRG 101 ==
LOC: EDH 14:47 → EDHIP 19:04 → 4BH 22:07
PROVIDERS: ADMIT Internal Medicine; ATTEND Internal Medicine
DX: G40.909 Epilepsy, unspecified, not intractable, without status epilepticus (principal); G45.9 Transient cerebral ischemic attack, unspecified; G91.9 Hydrocephalus, unspecified; F32.A Depression, unspecified; G93.89 Other specified disorders of brain; R00.1 Bradycardia, unspecified; Z79.02 Long term (current) use of antithrombotics/antiplatelets; Z79.82 Long term (current) use of aspirin; Z79.899 Other long term (current) drug therapy; Z86.61 Personal history of infections of the central nervous system; Z98.2 Presence of cerebrospinal fluid drainage device
CPT/HCPCS: 36415; 70450; 70496; 70498; 71045; 80048; 80053; 80061; 80177; 80305; 81003; 82550; 82948; 83036; 83721; 84443; 84484; 85025; 85610; 85730; 92610; 92950; 93005; 96374; 99291; G0378; Q9967; J1308

== ENCOUNTER 2025-04-28 11:11 | Emergency (ER) | payer BC, MEDICAID ==
[~2025-04-28] VITALS: Ht 154.9 cm; Wt 73.0 kg
[~2025-04-28 11:11] MED LIST: CENO200T PO; LAMO200T PO; LAMO200T10 PO; TOPI200C5 PO
--- NOTE | 2025-04-28 11:34 | ERN ---
General Chief Complaint: Headache Stated Complaint: HEADAACHE Time Seen by MD: 11:14 Time Seen by Midlevel: 11:14 Source: patient History of Present Illness Initial Comments 44-year-old female who presents to the emergency department due to a headache onset last night. Per mother patient had an episode of a seizure with dizziness last night. Patient reports generalized weakness but denies any vomiting, abnormal behavior or further associated symptoms. Mother denies any head inju martha, LOC. PMHx depression, seizure disorder, hydrocephalus with [employer] SUPERVISOR shunt and vagus nerve stimulator in place. Follows up with Dr. Segovia. Allergies: Coded Allergies: No Known Drug Allergies (Unverified Allergy, Unknown, 04/10/25) Home Meds Reported Medications Lamotrigine (Lamotrigine) 200 Mg Tablet, 2 TAB PO HS for 30 Days, #30 TAB 0 Refills 04/11/25 Topiramate (Topiramate ER) 200 Mg Cap.spr.24, 2 CAP PO HS for 30 Days, #60 CAP 0 Refills 04/11/25 Cenobamate (Xcopri) 200 Mg Tablet, 200 MG PO HS, TAB 04/10/25 Lamotrigine (Lamictal) 200 Mg Tablet, 200 MG PO HS, TAB 04/10/25 Past Medical History Past Medical History: Depression, Seizure Past Surgical History: Other Surgical History Other: temporal lobectomy, shunt, seizure implant ROS Dictation Constitutional: Negative for fever,chills, and weight loss Eyes: Negative for injury, pain,redness, and discharge ENT: Negative for injury,pain or swelling Cardiovascular: Negative for chest pain, palpitations, and edema Respiratory: Negative for shortness of breath, cough, and wheezing, Abdomen/GI: Negative for abdominal pain, nausea, vomiting, diarrhea, and constipation Back: Negative for injury and pain : Negative for painful urination, bleeding or discharge MS/Extremity: Negative for injury and deformity Skin: Negative for rash, and discoloration Neuro: Positive headache, generalized weakness Negative for numbness, tingling, and seizure Psych: Negative for suicide ideation, homicidal ideation, and hallucinations Physical Exam Physical Exam Dictation General: awake, alert, no acute distress Head/Face: Normocephalic, atraumatic Eyes: PERRL, EOMI, normal conjunctiva ENT: oral cavity clear, oral mucosa moist Neck: Supple, normal range of motion Cardiovascular: RRR, normal S1/S2 Respiratory: CTAB, no respiratory distress Skin: Warm, dry, normal turgor, no rash MS/Extremity: Pulses equal, no cyanosis, neurovascular intact, FROM Neuro: COAx4, GCS 15, strength 5/5, CN 2-12 intact, normal cerebellar exam Psych: Normal behavior, mood, and affect normal Results Laboratory and Microbiology Lab and Micro Result Laboratory Tests Test 04/28/25 11:43 04/28/25 12:57 White Blood Count 5.1 K/uL (4.8-10.8) Red Blood Count 4.22 MIL/uL (4.00-5.50) Hemoglobin 11.5 g/dL (12.0-16.0) L Hematocrit 36.6 % (36-48) Mean Corpuscular Volume 86.7 fL (79-99) Mean Corpuscular Hemoglobin 27.3 pg (27.0-33.0) Mean Corpuscular Hemoglobin Concent 31.4 g/dL (32.0-36.0) L Red Cell Distribution Width 15.4 % (11.0-15.5) Platelet Count 331 K/uL (130-400) Mean Platelet Volume 10.2 fL (7.5-10.5) Immature Granulocyte % (Auto) 0.2 % (0-1) Neutrophils (%) (Auto) 61.3 % (40.0-77.0) Lymphocytes (%) (Auto) 31.9 % (21.0-51.0) Monocytes (%) (Auto) 5.0 % (3.0-13.0) Eosinophils (%) (Auto) 1.2 % (0.0-8.0) Basophils (%) (Auto) 0.4 % (0.0-5.0) Neutrophils # (Auto) 3.1 K/uL (1.8-7.7) Lymphocytes # (Auto) 1.6 K/uL (1.0-4.8) Monocytes # (Auto) 0.3 K/uL (0.1-1.0) Eosinophils # (Auto) 0.06 K/uL (0.00-0.70) Basophils # (Auto) 0.02 K/uL (0.00-0.20) Absolute Immature Granulocyte (auto 0.01 K/uL (0-1) Nucleated Red Blood Cells 0.0 % (0.0-0.19) Sodium Level 143 mmol/L (136-145) Potassium Level 3.7 mmol/L (3.5-5.1) Chloride Level 110 mmol/L (101-111) Carbon Dioxide Level 23 mmol/L (21-32) Blood Urea Nitrogen 18 mg/dL (7-18) Creatinine 0.9 mg/dL (0.5-1.0) Glomerular Filtration Rate Calc 80 mL/min (>90) Random Glucose 93 mg/dL (70-105) Total Calcium 8.0 mg/dL (8.5-10.1) L Urine Color LIGHT-YELLOW (YELLOW) Urine Appearance CLEAR (CLEAR) Urine pH 6.0 (5.0-8.0) Urine Specific [place] 1.029 (1.001-1.031) Urine Protein NEGATIVE mg/dL (NEGATIVE) Urine Glucose (UA) NEGATIVE mg/dL (NEGATIVE) Urine Ketones NEGATIVE mg/dL (NEGATIVE) Urine Occult Blood SMALL (NEGATIVE) H Urine Nitrate NEGATIVE (NEGATIVE) Urine Bilirubin NEGATIVE mg/dL (NEGATIVE) Urine Urobilinogen 0.2 mg/dL (0.2-1.0) Urine Leukocyte Esterase NEGATIVE Pedro/uL Urine RBC None /HPF (0-1) Urine WBC 2-5 /HPF (0-1) H Urine Bacteria None /HPF (None Seen) Labs Reviewed?: Yes EKG/XRAY/US/CT/MRI CT Scan Comment REASON: Headache w/ [employer] SUPERVISOR shut hx ORDERING PHYSICIAN: JULISA GREEN PAC PROCEDURE: HEAD WO - CT HEAD/BRAIN W/O CONTRAST EXAM: CT Head Without IV contrast. CLINICAL HISTORY: Headache with/ [employer] SUPERVISOR shut hx TECHNIQUE: Axial computed tomography images of the head/brain without intravenous contrast. COMPARISON: 04/10 FINDINGS: BRAIN: No evidence of acute hemorrhage. No mass lesion. Small area of stable abnormal hypoattenuating right temporal lobe. No midline shift or extra-axial collections. Left temporal lobe chronic changes of encephalomalacia VENTRICLES: No hydrocephalus. Right ventricular shunt catheter tip in place. ORBITS: The orbits are unremarkable. SINUSES AND MASTOIDS: The paranasal sinuses and mastoid air cells are clear. BONES: No fracture. Left craniotomy changes. IMPRESSION:1. No acute intracranial findings. 2. Right ventricular shunt catheter in place. 3. Chronic changes as mentioned above. /[place] DICTATED BY: REGINA NEVES Jr., MD DATE: 04/28/25 1328 MDM MDM: Differential diagnosis: Seizure, dehydration, migraine, [employer] SUPERVISOR shunt placed displacement Rationale: 44-year-old female who presents to the emergency department due to a headache onset last night. Per mother patient had an episode of a seizure with dizziness last night. Patient reports generalized weakness but denies any vomiting, abnormal behavior or further associated symptoms. Mother denies any head injuries, LOC. PMHx depression, seizure disorder, hydrocephalus with [employer] SUPERVISOR shunt and vagus nerve stimulator in place. Follows up with Dr. Segovia. Per physical examination patient is in no acute distress, no neurological deficits noted. Labs obtained are nonspecific. UA negative for urinary tract infection. CT head shows chronic changes no acute findings, RESE[employer] SUPERVISOR shunt in place. Patient and mother were educated on findings, and results. Advised to follow up with neurologist and PCP. Return to the emergency department if any worsening symptoms. Patient verbalized understanding. Patient stable for discharge. There are no social concerns with this patient. I independently interpreted the test that were performed, results were reviewed by me and considered findings on radiology if ordered. Medical management and examination interpretation discussions were had by me with other qualified healthcare professionals as indicated for the patient's care. ED Course Orders Procedure Category Date Status Time Cbc With Differential LAB 04/28/25 Complete 11:26 Basic Metabolic Panel LAB 04/28/25 Complete 11:26 Urinalysis LAB 04/28/25 Complete W/Microscopic 11:26 Ct Head/Brain W/O CT 04/28/25 Resulted Contrast 11:26 Acetaminophen 500mg PHA 04/28/25 Complete Tab (Tylenol 500mg T 14:00 Current Medications Medications (Trade) Dose Ordered Sig/Swapnil Route PRN Reason Start Time Stop Time Status Last Admin Dose Admin Acetaminophen (TYLenol 500MG TAB) 1,000 mg ONCE ONCE PO 04/28/25 14:00 04/28/25 14:01 DC 04/28/25 13:52 Vital Signs Date Time Temp Pulse Resp B/P (MAP) Pulse Ox O2 Delivery O2 Flow Rate FiO2 04/28/25 14:14 97.9 62 16 124/63 98 Room Air* 0 21 04/28/25 13:07 52 16 120/58 98 Room Air* 0 21 04/28/25 11:20 97.5 69 16 114/71 98 Room Air* 0 21 04/28/25 11:13 97.5 69 16 114/71 98 Room Air 0 DX & DISP Disposition: Discharge Departure Impression: Primary Impression: Headache Condition: Stable Additional Instructions: Discharge home. Rest. Follow up with primary care DrAlejandra in 24 hours. Return to the ER for any acute changes or worsening symptoms. If any medications were prescribed take as directed. Okay to continue home medications unless otherwise discussed during your visit in the emergency room today. Patient was also advised to follow-up with primary care physician in 1 to 2 days for continued monitoring. Referrals: BETHEL KAUR DO (PCP) I performed the substantive portion of the visit. I have reviewed and personally made and approve the management plan that is documented in the notes by myself or the RAKESH. I acknowledge full responsibility for the patient's management plan. JULISA GREEN PAC Apr 28, 2025 11:34
[2025-04-28 12:01] LABS: IMMATURE GRANULOCYTE ABSOLUTE 0.01 K/uL (0-1); NUCLEATED RED BLOOD CELLS 0.0 % (0.0-0.19); PLATELET COUNT (AUTO) 331 K/uL (130-400); RED BLOOD CELL COUNT(AUTO) 4.22 MIL/uL (4.00-5.50); RED CELL DISTRIBUTION WIDTH 15.4 % (11.0-15.5); WHITE BLOOD COUNT (AUTO) 5.1 K/uL (4.8-10.8)
[2025-04-28 12:12] LABS: CREATININE 0.9 mg/dL (0.5-1.0); GLOMERULAR FILTR. RATE CALC 80.0 mL/min (>90); GLUCOSE,RANDOM 93.0 mg/dL (70-105); SODIUM SERUM 143.0 mmol/L (136-145); UREA NITROGEN, BLOOD 18.0 mg/dL (7-18)
--- NOTE | 2025-04-28 12:29 | HMCIMG ---
EXAM: CT Head Without IV contrast. CLINICAL HISTORY: Headache with/ PHYSICAL THERAPIST AIDE shut hx TECHNIQUE: Axial computed tomography images of the head/brain without intravenous contrast. COMPARISON: 04/10 FINDINGS: BRAIN: No evidence of acute hemorrhage. No mass lesion. Small area of stable abnormal hypoattenuating right temporal lobe. No midline shift or extra-axial collections. Left temporal lobe chronic changes of encephalomalacia VENTRICLES: No hydrocephalus. Right ventricular shunt catheter tip in place. ORBITS: The orbits are unremarkable. SINUSES AND MASTOIDS: The paranasal sinuses and mastoid air cells are clear. BONES: No fracture. Left craniotomy changes. IMPRESSION:1. No acute intracranial findings. 2. Right ventricular shunt catheter in place. 3. Chronic changes as mentioned above. /[place]
[2025-04-28 13:05] LABS: APPEARANCE,URINE CLEAR (CLEAR); GLUCOSE, URINE (UA) NEGATIVE (NEGATIVE); LEUKOCYTE ESTERASE ,URINE NEGATIVE Leu/uL (NEGATIVE); NITRATE,URINE NEGATIVE (NEGATIVE); OCCULT BLOOD,URINE SMALL (NEGATIVE)
[2025-04-28 14:14] VITALS: BP 124/63; PULSE 62; RESP 16; TEMP 97.9; O2SAT 98
== END 2025-04-28 14:23 | disposition home or self-care (01) ==
LOC: EDH 11:11
DX: R51.9 Headache, unspecified (principal); Z98.2 Presence of cerebrospinal fluid drainage device
CPT/HCPCS: 36415; 70450; 80048; 81001; 85025; 99284